=== PATIENT | male | born 1990 | race Caucasian/White ===

== ENCOUNTER 2018-05-23 15:08 | Emergency (ER) | END 2018-05-23 18:07 | disposition home or self-care (01) ==

== ENCOUNTER 2018-07-26 09:06 | Inpatient (IN) | payer OTHER ==
[~2018-07-26] VITALS: Ht 175.3 cm; Wt 74.5 kg
[~2018-07-26 09:06] MED LIST: HYDR-4011 PO; HYDR-762 PO; IBUP-1545 PO; IBUP-1561 PO; TAMS-14 PO
[2018-07-26] MEDS ORDERED: morphine 4 MG/ML VIAL IV STA (09:18)
[2018-07-26] MEDS ORDERED: ONDANSETRON 4 MG INJ IV STA ×2 (09:18→09:50)
[2018-07-26] MEDS ORDERED: SOD CHLORIDE 0.9% 1,000 ML IV STA (09:18)
--- NOTE | 2018-07-26 09:33 | ERD ---
ER Documentation Chief Complaint Chief Complaint ABD PAIN X3 HOURS, NO N/V/D HPI 27-year-old male presents emergency department complaining of 10 out of 10, severe localized left lower quadrant abdominal pain for the past 3 hours. P atient admits to having nausea and nonbilious vomiting. He denies diarrhea, constipation, dysuria, hematemesis. Patient denies history of abdominal surgeries. Denies any medications ROS All systems reviewed and are negative except as per history of present illness. Medications Home Meds Active Scripts Ibuprofen* (Motrin*) 400 Mg Tab, 400 MG PO Q8, #15 TAB Prov:DOUGLAS BUNCH MD 05/23/18 Hydrocodone/Acetaminophen ([place] 5-325 Tablet) 1 Each Tablet, 1 TAB PO BID PRN for PAIN, #8 TAB Prov:DOUGLAS BUNCH MD 05/23/18 Hydrocodone Bit-Acetaminophen* ([place]*) 10-325 Mg Tablet, 1 TAB PO Q6 PRN for PAIN, #20 TAB Prov:CHIQUITA COX 08/28/15 Tamsulosin Hcl* (Flomax*) 0.4 Mg Cap.er.24h, 0.4 MG PO QPM, #20 CAP Prov:CHIQUITA COX 08/28/15 Reported Medications Ibuprofen* (Ibuprofen*) 800 Mg Tab, 800 MG PO DAILY PRN for PAIN, TAB 05/08/14 Allergies Allergies: Coded Allergies: No Known Allergy (Unverified , 05/23/18) PMhx/Soc History of Surgery: No Anesthesia Reaction: No Hx Neurological Disorder: No Hx Respiratory Disorders: No Hx Cardiac Disorders: No Hx Psychiatric Problems: No Hx Miscellaneous Medical Probl: No Hx Alcohol Use: No Hx Substance Use: No Hx Tobacco Use: Yes Physical Exam Vitals Vital Signs Date Temp Pulse Resp B/P (MAP) Pulse Ox O2 O2 Flow FiO2 Time Delivery Rate 07/26/18 59 18 117/82 99 Room Air 14:00 (94) 07/26/18 56 20 123/78 99 Room Air 10:45 (93) 07/26/18 97.8 82 16 131/85 100 09:07 (100) Physical Exam GENERAL: well-developed/well-nourished, in no apparent distress, non-toxic appearing HENT: NC/AT, moist mucous membranes EYES: Conjunctiva normal NECK: Supple, no lymphadenopathy PULM: CTA bilaterally, no rales, rhonchi, or wheezing heard CV: Normal S1S2, RRR, good capillary refill GI: Soft, non-distended, tender to palpation left lower quadrant Normal bowel sounds, no masses or organomegaly felt on exam No gross peritonitis, no bruits Negative Rovsing, negative Bourgeois, negative McBurney's point, Negative CVAT BACK: No masses EXT: No clubbing, cyanosis, or edema NEURO: Alert and Orientated SKIN: Intact, normal turgor PSYCH: Normal mood and mentation Result Diagram: 07/26/1892207/26/18922 Results 24 hrs Laboratory Tests Test 07/26/18 09:23 White Blood Count 10.3 10^3/ul Red Blood Count 5.35 10^6/ul Hemoglobin 15.7 g/dl Hematocrit 46.5 % Mean Corpuscular Volume 86.9 fl Mean Corpuscular Hemoglobin 29.3 pg Mean Corpuscular Hemoglobin Concent 33.8 g/dl Red Cell Distribution Width 12.6 % Platelet Count 337 10^3/UL Mean Platelet Volume 9.8 fl Immature Granulocytes % 0.300 % Neutrophils % 53.4 % Lymphocytes % 37.1 % Monocytes % 5.6 % Eosinophils % 3.0 % Basophils % 0.6 % Nucleated Red Blood Cells % 0.0 /100WBC Immature Granulocytes # 0.030 10^3/ul Neutrophils # 5.5 10^3/ul Lymphocytes # 3.8 10^3/ul Monocytes # 0.6 10^3/ul Eosinophils # 0.3 10^3/ul Basophils # 0.1 10^3/ul Nucleated Red Blood Cells # 0.0 10^3/ul Urine Color YELLOW Urine Clarity SLIGHTLY CLOUDY Urine pH 6.0 Urine Specific [place] 1.019 Urine Ketones NEGATIVE mg/dL Urine Nitrite NEGATIVE mg/dL Urine Bilirubin NEGATIVE mg/dL Urine Urobilinogen NEGATIVE mg/dL Urine Leukocyte Esterase NEGATIVE George/ul Urine Microscopic RBC > 182 /HPF Urine Microscopic WBC 9 /HPF Urine Bacteria FEW /HPF Urine Mucus FEW /HPF Urine Hemoglobin 3+ mg/dL Urine Glucose NEGATIVE mg/dL Urine Total Protein 2+ mg/dl Sodium Level 141 mmol/L Potassium Level 4.8 mmol/L Chloride Level 100 mmol/L Carbon Dioxide Level 29 mmol/L Anion Gap 12 Blood Urea Nitrogen 11 mg/dl Creatinine 0.92 mg/dl Est Glomerular Filtrat Rate mL/min > 60 mL/min Glucose Level 107 mg/dl Calcium Level 10.4 mg/dl Total Bilirubin 0.1 mg/dl Direct Bilirubin 0.00 mg/dl Indirect Bilirubin 0.1 mg/dl Aspartate Amino Transf (AST/SGOT) 23 IU/L Alanine Aminotransferase (ALT/SGPT) 20 IU/L Alkaline Phosphatase 91 IU/L Total Protein 8.2 g/dl Albumin 4.7 g/dl Globulin 3.50 g/dl Albumin/Globulin Ratio 1.34 Lipase 37 U/L Current Medications Medications Dose Sig/Leslie Start Time Status Last (Trade) Ordered Route PRN Stop Time Admin Dose Reason Admin Sodium 1,000 ml @ Q1H STAT 07/26/18 DC 07/26/18 Chloride 1,000 mls/hr IV 09:18 09:31 07/26/18 10:17 Morphine 4 mg ONCE STAT 07/26/18 DC 07/26/18 Sulfate IV 09:18 09:32 (morphine) 07/26/18 09:20 Ondansetron 4 mg ONCE STAT 07/26/18 DC 07/26/18 HCl (Zofran IV 09:18 09:32 Inj) 07/26/18 09:20 0.5 mg ONCE STAT 07/26/18 DC 07/26/18 Hydromorphone IV 09:50 10:00 HCl 07/26/18 09:53 (Dilaudid) Ondansetron 2 mg ONCE STAT 07/26/18 DC 07/26/18 HCl (Zofran IV 09:50 10:01 Inj) 07/26/18 09:53 Ketorolac 30 mg ONCE STAT 07/26/18 DC 07/26/18 Tromethamine IV 10:41 10:44 (Toradol) 07/26/18 10:42 1 mg ONCE STAT 07/26/18 DC 07/26/18 Hydromorphone IV 10:45 10:54 HCl 07/26/18 10:46 (Dilaudid) Ceftriaxone 50 ml @ ONCE ONCE 07/26/18 DC 07/26/18 Sodium 100 mls/hr IVPB 11:00 10:53 07/26/18 11:29 Tamsulosin 0.4 mg HS PO 1/22/19 HCl 12:30 (Flomax) Ketorolac 15 mg Q6H PRN 07/26/18 Tromethamine IV PAIN 12:30 (Toradol) 07/29/18 12:29 Morphine 2 mg Q8H PRN 07/26/18 Sulfate IV SEVERE 12:30 (morphine) PAIN LEVEL 7-10 Procedures/MDM 27-year-old male with history of opioid abuse, nephrolithiasis presents with 6 mm renal stone in the left upper ureter with moderate left hydronephrosis. Patient will be admitted for intractable pain. Likely due to patient's history of opioid abuse, he is requiring more pain control. I have consulted my supervising physician Dr. Engle who consulted hospitalist, accepted. Patient's pain has stabilized in the ED with morphine, Dilaudid and Zofran. Urinalysis showed pyuria, patient was given Rocephin empirically. Patient is stable to be transferred to [facility] for intractable pain. CT ABD & PELVIS WO CONTRAST 1. Moderate left hydronephrosis and 6 mm calculus within the left upper ureter. 2. Bilateral nephrolithiasis. Departure Diagnosis: Primary Impression: Kidney stone Additional Impressions: Hydronephrosis Opioid abuse Intractable pain Condition: QUENTIN Leija PA-C Jul 26, 2018 09:33
[2018-07-26] MEDS ORDERED: HYDROmorphONE 0.5 MG/0.5 ML SYG IV STA ×2 (09:50→10:45)
[2018-07-26] MEDS ORDERED: KETOROLAC 30 MG INJ IV STA (10:41)
[2018-07-26] MEDS ORDERED: CEFTRIAXONE 1 GM/50 ML (PMX) 50 ML IVPB ONE (11:00)
[2018-07-26] MEDS: TAMSULOSIN (SR) 0.4 MG CAP PO SCH ×2 (12:30→20:54)
[2018-07-26] MEDS ORDERED: morphine 2 MG INJ IV PRN (12:30)
[2018-07-26] MEDS ORDERED: KETOROLAC 15 MG INJ IV PRN (12:30)
[2018-07-26] MEDS ORDERED: NACL 0.9% 3 ML SYG IV SCH (14:30)
--- NOTE | 2018-07-26 14:34 | HP ---
Date/Time of Note Date/Time of Note DATE: 07/26/18 TIME: 14:25 Assessment/Plan VTE Prophylaxis Pharmacological prophylaxis: NA/contraindicated Pharm contraindication: low risk/ambulating Lines/Catheters IV Catheter Type (from Nrs): Saline Lock Assessment/Plan Hospital Course 27 yo male with nephrolithasis causing hydronephrosis: - IV fluids - Pain control - Flomax - Strain urine for stone - Serial XR to see stone progression Result Diagram: 07/26/1823 07/26/1823 Results 24hrs Laboratory Tests Test 07/26/18 09:23 White Blood Count 10.3 Red Blood Count 5.35 Hemoglobin 15.7 Hematocrit 46.5 Mean Corpuscular Volume 86.9 Mean Corpuscular Hemoglobin 29.3 Mean Corpuscular Hemoglobin Concent 33.8 Red Cell Distribution Width 12.6 Platelet Count 337 Mean Platelet Volume 9.8 Immature Granulocytes % 0.300 Neutrophils % 53.4 Lymphocytes % 37.1 Monocytes % 5.6 Eosinophils % 3.0 Basophils % 0.6 Nucleated Red Blood Cells % 0.0 Immature Granulocytes # 0.030 Neutrophils # 5.5 Lymphocytes # 3.8 H Monocytes # 0.6 Eosinophils # 0.3 Basophils # 0.1 Nucleated Red Blood Cells # 0.0 Urine Color YELLOW Urine Clarity SLIGHTLY CLOUDY A Urine pH 6.0 Urine Specific [place] 1.019 Urine Ketones NEGATIVE Urine Nitrite NEGATIVE Urine Bilirubin NEGATIVE Urine Urobilinogen NEGATIVE Urine Leukocyte Esterase NEGATIVE Urine Microscopic RBC > 182 H Urine Microscopic WBC 9 H Urine Bacteria FEW A Urine Mucus FEW A Urine Hemoglobin 3+ H Urine Glucose NEGATIVE Urine Total Protein 2+ H Sodium Level 141 Potassium Level 4.8 Chloride Level 100 Carbon Dioxide Level 29 Anion Gap 12 Blood Urea Nitrogen 11 Creatinine 0.92 Est Glomerular Filtrat Rate mL/min > 60 Glucose Level 107 Calcium Level 10.4 H Total Bilirubin 0.1 L Direct Bilirubin 0.00 Indirect Bilirubin 0.1 Aspartate Amino Transf (AST/SGOT) 23 Alanine Aminotransferase (ALT/SGPT) 20 Alkaline Phosphatase 91 Total Protein 8.2 H Albumin 4.7 Globulin 3.50 H Albumin/Globulin Ratio 1.34 Lipase 37 HPI/ROS Admit Date/Time Admit Date/Time Hx of Present Illness 27 yo male with h/o nephrolithiasis presents with flank pain, nausea, vomiting Patient had mild episode of kidney stone a few months ago. Passed the stone. Has been fine since. Then today has developed severe flank pain. Also nausea and vomiting. Came to ED where found to have 6 mm obstructing stone. Feels better after pain meds PMH/Family/Social Past Medical History Medical History: no pertinent history Medications Current Medications Tamsulosin HCl (Flomax) 0.4 mg HS PO ; Start 07/26/18 at 12:30 Ketorolac Tromethamine (Toradol) 15 mg Q6H PRN IV PAIN; Start 07/26/18 at 12:30; Stop 07/29/18 at 12:29 Morphine Sulfate (morphine) 2 mg Q8H PRN IV SEVERE PAIN LEVEL 7-10; Start 07/26/18 at 12:30 Coded Allergies: No Known Allergy (Unverified , 05/23/18) Past Surgical History Past Surgical Hx: no surgical history Family History Significant Family History: no pertinent family hx Social History Alcohol Use: none Smoking Status: Current every day smoker Drug Use: none Exam/Review of Systems Vital Signs Vitals Vital Signs Date Temp Pulse Resp B/P (MAP) Pulse Ox O2 O2 Flow FiO2 Time Delivery Rate 07/26/18 59 18 117/82 99 Room Air 14:00 (94) 07/26/18 97.8 09:07 Exam Constitutional: alert, oriented, well developed Psych: no complaints, nl mood/affect Head: normocephalic, atraumatic Eyes: nl conjunctiva, EOMI, nl lids, nl sclera, PERRL ENMT: nl external ears & nose, nl lips & teeth, nl nasal mucosa & septum Neck: supple, non-tender Respiratory: clear to auscultation, normal air movement Cardiovascular: regular rate and rhythm, nl pulses Gastrointestinal: soft, nl liver, spleen, non-tender Musculoskeletal: nl extremities to inspection Extremities: normal pulses Neurological: INFANTRY INDIRECT FIRE CREWMEMBER II-XII intact, nl mental status, nl speech, nl strength Skin: nl turgor; No rash or lesions Lymph: nl lymph nodes LEONIE GUTIERREZ MD Jul 26, 2018 14:34
[2018-07-26 16:00] VITALS: BP 107/56; PULSE 69; RESP 18
[2018-07-26] MEDS ORDERED: morphine 4 MG/ML VIAL IV PRN (16:00)
[2018-07-26 17:00] VITALS: Ht 175.3 cm; Wt 74.5 kg
--- NOTE | 2018-07-26 18:13 | NUR ---
NURSING NOTE: PATIENT ARRIVED FROM ER VIA WHEELCHAIR AT 1600 INTO ROOM 420. PATIENT ALERT AND ORIENTATED COMPLAINING OF 7/10 PAIN. VSS. PATIENT ORIENTATED TO ROOM, CALL OSMAN WITHIN REACH, ASSESSMENT DONE, WILL CONTINUE TO MONITOR.
--- NOTE | 2018-07-26 18:15 | NUR ---
END OF SHIFT: PATIENT LYING IN BED, PATIENT MEDICATED FOR PAIN X1 WITH TORADOL, PATIENT STATES HE HAS NO MORE PAIN AND FEELS MUCH BETTER. VSS DURING SHIFT. PATIENT WANTS TO LEAVE D/T FEELING BETTER, EXPLAINED TO PATIENT ABOUT REASON FOR ADMISSION. NO UROLOGIST CONSULT. PATIENT VOIDED X 1, AND NO STONES FOUND YET. HOURLY ROUNDING DONE DURING SHIFT, CALL OSMAN WITHIN REACH, FALL PRECAUTIONS OBSERVED, WILL ENDORSE TO NIGHT RN.
[2018-07-26] MEDS: SOD CHLORIDE 0.9% 1,000 ML IV SCH (18:42)
[2018-07-26 20:14] VITALS: BP 112/59; PULSE 72; RESP 18
[2018-07-27] MEDS: SOD CHLORIDE 0.9% 1,000 ML IV SCH ×2 (00:25→03:08)
[2018-07-27] MEDS ORDERED: morphine 4 MG/ML VIAL IV PRN (01:00)
--- NOTE | 2018-07-27 06:11 | NUR ---
Patient alert, oriented x4, slept good during the night, once asked for pain medication; urination good; VS were stable, in the normal range.
[2018-07-27 07:32] VITALS: BP 115/76; PULSE 64; RESP 18
[2018-07-27] MEDS ORDERED: TAMS-14 PO (10:02)
[2018-07-27] MEDS ORDERED: IBUP-1541 PO (10:02)
--- NOTE | 2018-07-27 11:00 | NUR ---
PATIENT ALERT , ORIENTED, VITALS STABLE. NO COMPLAINTS OF PAIN, NAUSEA OR VOMITING NOTED. DIET TOLERATED. ALL SAFETY PRECAUTIONS MAINTAINED SUCH BED IN THE LOWEST POSITION, ALARMS ON, BRAKES ON, CALL LIGHT WITHIN REACH. IV SITE INTACT AND PATENT. IVFLUID ON FLOW. WILL CONTINUE TO MONITOR.
--- NOTE | 2018-07-27 11:41 | DS ---
Date/Time of Note Date/Time of Note DATE: 07/27/18 TIME: 11:39 Discharge Summary Admission/Discharge Info Admit Date/Time Jul 26, 2018 at 11:02 Discharge Date/Time Discharge Diagnosis Nephrolithiasis Patient Condition: Stable Hx of Present Illness 27 yo male with h/o nephrolithiasis presents with flank pain, nausea, vomiting Patient had mild episode of kidney stone a few months ago. Passed the stone. Has been fine since. Then today has developed severe flank pain. Also nausea and vomiting. Came to ED where found to have 6 mm obstructing stone. Feels better after pain meds Hospital Course The patient was found to have a 6mm stone in his ureter causing some hydronphrosis. He did not show any signs of sepsis. He was treated with IV fluids and pain control medications as well as flomax. The morning followign admission he requested to be discharged home, he has not yet passed the stone. He says he will return to the hospital if he has pain or any other symptoms. Home Meds Discontinued Reported Medications Ibuprofen* (Ibuprofen*) 800 Mg Tab, 800 MG PO DAILY PRN for PAIN, TAB 05/08/14 Discontinued Scripts Ibuprofen* (Motrin*) 400 Mg Tab, 400 MG PO Q8, #15 TAB Prov:DOUGLAS BUNCH MD 05/23/18 Hydrocodone/Acetaminophen ([place] 5-325 Tablet) 1 Each Tablet, 1 TAB PO BID PRN for PAIN, #8 TAB Prov:DOUGLAS BUNCH MD 05/23/18 Hydrocodone Bit-Acetaminophen* ([place]*) 10-325 Mg Tablet, 1 TAB PO Q6 PRN for PAIN, #20 TAB Prov:CHIQUITA COX 08/28/15 Tamsulosin Hcl* (Flomax*) 0.4 Mg Cap.er.24h, 0.4 MG PO QPM, #20 CAP Prov:CHIQUITA COX 08/28/15 Primary Care Provider Not On Staff Doctor Pending Labs Laboratory Tests Test 07/27/18 04:28 Sodium Level 143 mmol/L (135-144) Potassium Level 4.4 mmol/L (3.5-5.1) Chloride Level 103 mmol/L (97-110) Carbon Dioxide Level 28 mmol/L (21-31) Anion Gap 12 (5-13) Blood Urea Nitrogen 11 mg/dl (7-20) Creatinine 0.78 mg/dl (0.61-1.24) Est Glomerular Filtrat Rate mL/min > 60 mL/min (>60) Glucose Level 117 mg/dl (70-220) Hemoglobin A1c 5.4 % (0-5.9) Calcium Level 9.1 mg/dl (8.4-10.2) LEONIE GUTIERREZ MD Jul 27, 2018 11:41
--- NOTE | 2018-07-27 13:47 | NUR ---
RECEIVED DISCHARGE ORDERS FROM DR. LEONIE GUTIERREZ AND DISCHARGE PROCEDURES STARTED . PACKET PRINTED. DISCHARGE INSTRUCTION GIVEN. IV REMOVED . CATHETER TIP INTACT AND DRY DRESSING APPLIED. PATIENT INSTRUCTED REGARDING RENAL STONES, PAIN MANAGEMENT, DIET , PREVENTION OF INFECTION, FOLLOW UP CARE. AWIATING FOR FAMILY TO COME.
[2018-07-27 14:00] VITALS: BP 114/70; RESP 18
--- NOTE | 2018-07-27 15:00 | NUR ---
PATIENT DISCHARGED SAFELY AT THIS TIME VIA WHEELCHAIR BY TRANSPORTER. FAMILY ACCOMPANIED.
== END 2018-07-27 14:57 | disposition home or self-care (01) | DRG 694 ==
LOC: FTE 09:06 → MS1 11:02
PROVIDERS: ADMIT Internal Medicine; ATTEND Internal Medicine
DX: N13.2 Hydronephrosis with renal and ureteral calculous obstruction (principal)
CPT/HCPCS: 36415; 74176; 80048; 80053; 81001; 83036; 83690; 85025; 96374; 96375; 96376; J0696; J1170; J1885; J2270; J2405; J7030